=== PATIENT | male | born 1945 | race Caucasian/White ===

== ENCOUNTER 2020-09-18 16:45 | Observation (INO) | payer MEDICARE, OTHER ==
[~2020-09-18] VITALS: Ht 185.4 cm; Wt 130.0 kg
[~2020-09-18 16:45] MED LIST: ASPIRINCHW 81MG PO; COREG25 MG PO; COZAAR50 MG PO; FISH OIL1200 M1 PO; LIPITOR80 M1 PO; MULTIVITAM11 PO; PLAVIX75 MG PO; SPIRONOLACT25 MG PO; STOOL SOFT PO; VITAMIN D1000 UNIT PO; ZOFRAN ODT4 MG OR
--- NOTE | 2020-09-18 18:39 | NUR ---
PATIENT TO ROOM VIA WHEELCHAIR AND PHYSICIAN NOTIFIED OF PATIENT STATUS
--- NOTE | 2020-09-18 19:00 | NUR ---
Reassessment of patient completed. No distress noted.
--- NOTE | 2020-09-18 20:00 | NUR ---
Reassessment of patient completed. No distress noted.
[2020-09-18 20:05] LABS: ACT PARTIAL THROMBO TIME 26.3 SECONDS (20.0-32.5); ALKALINE PHOSPHATASE 62 u/l (38-126); ANION GAP 12 (6-22 (CALC)); BUN 23 mg/dL (8-23); BUN/CREATININE RATIO 18 (12-20 (CALC)); CARBON DIOXIDE 29 mmol/l (22-30); CHLORIDE 98 mmol/l (95-108); CREATININE 1.3 mg/dL (0.7-1.3); GFR 54 ML/MIN (>=60 (CALC)); GFR FOR AFR.AMER. > 60 ML/MIN (>=60 (CALC)); POTASSIUM 4.5 mmol/l (3.5-5.1); SGOT/AST 27 u/l (19-48); SODIUM 135 mmol/l (137-146)
[2020-09-18 20:12] LABS: INTERNATIONAL NORMALIZED RATIO 1.1 RATIO (0.7-1.3); PROTHROMBIN TIME 11.5 SECONDS (9.0-12.5)
[2020-09-18 20:14] LABS: ALBUMIN 4.3 g/dL (3.2-5.0); BILIRUBIN, TOTAL 1.3 mg/dL (0.0-1.4); TOTAL PROTEIN 7.6 g/dL (6.3-8.2)
[2020-09-18 20:15] LABS: HEMATOCRIT 44.8 % (39.0-50.0); HEMOGLOBIN 14.8 g/dl (14.0-18.0); IMMATURE GRANULOCYTES 0.5 % (0.0-5.0); MEAN CELL VOLUME 97.4 fL CALC (80.0-100.0); MEAN CORPUSCULAR HGB 32.2 pG CALC (26.0-32.0); NEUT# 11.24 thou/uL (1.82-7.42); RED BLOOD COUNT 4.6 mill/uL (4.70-6.10); RED CELL DISTRI WIDTH 13.1 % (11.5-15.5)
--- NOTE | 2020-09-18 21:00 | NUR ---
Reassessment of patient completed. No distress noted.
--- NOTE | 2020-09-18 22:00 | NUR ---
REPORT CALLED TO MISSY RN AND PT TRANSPORTED VIA WHEELCHAIR
--- NOTE | 2020-09-18 22:01 | NUR ---
PER Miguelina ORMAN PT'S COVID TEST IS NEGATIVE, PT ASSIGNED TO ROOM 271 AT THIS TIME.
--- NOTE | 2020-09-18 22:02 | NUR ---
TELEPHONE REPORT RECEIVED FROM Ray XIONG RN.
--- NOTE | 2020-09-18 22:11 | NUR ---
PT ARRIVES TO UNIT AT 2211 VIA WHEEL CHAIR, ACCOMPANIED BY Ray XIONG RN, PT TAKEN TO ROOM 271. AMBULATORY TO BATHROOM AND BACK TO BED WITH STEADY AND BALANCED GAIT. ORIENTED TO ROOM/CALL [facility]/BED/TV/LIGHT CONTROLS.
--- NOTE | 2020-09-18 22:15 | NUR ---
ADMISSION AND PHYSICAL ASSESMENT COMPLETED. LLE ERYTHEMA MID PHILLIPS TO ANKLE BLANCHBLE WITH SKIN INTACT. DENIES PAIN. C/M/S INTACT. PLAN OF CARE REVIEWED, PT VERBALIZES UNDERSTANDING AND DENIES QUESTIONS. PT REQUESTING TO EAT, DENIES ANY FURTHER NEEDS. CALL [facility] WITHIN REACH, AGREES TO CALL PRN.
[2020-09-18 22:20] VITALS: BP 146/79
--- NOTE | 2020-09-18 22:30 | NUR ---
DR. TAYLOR CALLED FOR ADMIT ORDERS. ADMT ORDERS RECEIVED VIA CPOE.
--- NOTE | 2020-09-18 22:45 | NUR ---
FROZEN DINNER TRAY PREPARED AND PROVIDED TO PT BY Ad BURTON CNA
--- NOTE | 2020-09-18 23:23 | NUR ---
SCHEDULED MEDICATIONS ADMINISTERED, SEE E-MAR.
--- NOTE | 2020-09-19 | NUR ---
PT LAYING IN BED WITH EYES CLOSED, RESPIRATIONS REGULAR AND UNLABORED, NO APPARENT DISTRESS, APPEARS TO BE SLEEPING COMFORTABLY. CALL [facility] REMAINS WITHIN REACH.
[2020-09-19 04:29] VITALS: BP 122/74
--- NOTE | 2020-09-19 04:32 | NUR ---
ILAN EXTENSION PROFESSOR IN ROOM TO COLLECT AM LAB.
[2020-09-19 07:33] VITALS: BP 103/58
--- NOTE | 2020-09-19 08:00 | NUR ---
PT RESTING IN THE BED AXOX3. DENIES PAIN, DENIES NAUSEA AND VOMITING. NOTED LEFT LEG. PT STATES HE WOULD LIKE TO GO HOME. EDUCATED ON D/C PROCESS. REPOSITIOEND FOR COMFORT, SIDE RAILS UP CALL LIGHT IN REACH, ALL SAFTY MEASURES IN PLACE. WILL CONTINUE TO MONIOTR THE PATIENT.
[2020-09-19 08:24] VITALS: BP 124/69
[2020-09-19 10:35] VITALS: BP 94/55
--- NOTE | 2020-09-19 11:40 | NUR ---
PT RESTING COMFORTABLE NO C/O AT THIS TIME. WILL CONTINUE TO MONIOTR THE PATIENT.
[2020-09-19] MEDS ORDERED: AMOX/K CLAV875 M1 PO (12:46)
[2020-09-19 12:55] VITALS: BP 108/56
--- NOTE | 2020-09-19 13:17 | NUR ---
PT HAS A DISCHARGE ORDER TO GO TO HIS OWN HOME. HL REMOVED TIP IN TACT.
--- NOTE | 2020-09-19 13:28 | NUR ---
Patient is screened for intervention and no needs are identfied at this time
--- NOTE | 2020-09-19 13:55 | NUR ---
DISCHARGE ORDERS GIVEN UNDERSTOOD AND SIGNED BY THE PT.PT LEFT WITH FAMILY MEMBER TO GO TO HIS OWN HOME.
== END 2020-09-19 13:54 | disposition home or self-care (01) ==
LOC: ED 16:45 → ED-I 21:24 → MS2 21:36 → ED 21:36 → MS2 21:36
PROVIDERS: Emergency Medicine; ADMIT Internal Medicine; ATTEND Internal Medicine
DX: L03.116 Cellulitis of left lower limb (principal); I10 Essential (primary) hypertension; I25.10 Atherosclerotic heart disease of native coronary artery without angina pectoris; E78.5 Hyperlipidemia, unspecified; I25.2 Old myocardial infarction; Z86.718 Personal history of other venous thrombosis and embolism; Z95.5 Presence of coronary angioplasty implant and graft; Z20.822 Contact with and (suspected) exposure to COVID-19

== ENCOUNTER 2021-08-03 22:14 | Emergency (ER) | payer MEDICARE, OTHER ==
[~2021-08-03] VITALS: Ht 182.9 cm; Wt 131.0 kg
[~2021-08-03 22:14] MED LIST changes: +AMOX/K CLAV875 M1 PO
[2021-08-03 22:59] LABS: HEMATOCRIT 43.7 % (39.0-50.0); HEMOGLOBIN 14.6 g/dl (14.0-18.0); IMMATURE GRANULOCYTES 0.4 % (0.0-5.0); MEAN CELL VOLUME 96.9 fL CALC (80.0-100.0); MEAN CORPUSCULAR HGB 32.4 pG CALC (26.0-32.0); MEAN CORPUSCULAR HGB CONC 33.4 g/dL CAL (32.0-36.0); NEUT# 3.18 thou/uL (1.82-7.42); RED BLOOD COUNT 4.51 mill/uL (4.70-6.10); RED CELL DISTRI WIDTH 12.8 % (11.5-15.5)
[2021-08-03 23:17] LABS: ALBUMIN 3.8 g/dL (3.2-5.0); ALKALINE PHOSPHATASE 77 u/l (38-126); ANION GAP 12 (6-22 (CALC)); BUN 20 mg/dL (8-23); BUN/CREATININE RATIO 17 (12-20 (CALC)); CARBON DIOXIDE 26 mmol/l (22-30); CHLORIDE 105 mmol/l (95-108); CREATININE 1.2 mg/dL (0.7-1.3); GFR 59 ML/MIN (>=60 (CALC)); GFR FOR AFR.AMER. > 60 ML/MIN (>=60 (CALC)); POTASSIUM 4.3 mmol/l (3.5-5.1); SGOT/AST 25 u/l (19-48); SODIUM 139 mmol/l (137-146)
[2021-08-03 23:18] LABS: BILIRUBIN, TOTAL 0.5 mg/dL (0.0-1.4)
[2021-08-03 23:29] LABS: MYOGLOBIN 38 ng/mL (0 - 121)
[2021-08-04 01:33] VITALS: BP 162/82
== END 2021-08-04 01:45 | disposition home or self-care (01) ==
LOC: ED 22:14
PROVIDERS: Emergency Medicine
DX: I10 Essential (primary) hypertension (principal); U07.1 COVID-19; I25.2 Old myocardial infarction; Z95.5 Presence of coronary angioplasty implant and graft